=== PATIENT | female | born 2005 | race African-American/Black ===

== ENCOUNTER 2024-08-17 16:53 | Outpatient (CLI) | payer OTHER, SELFPAY | END 2024-08-17 16:54 | disposition home or self-care (01) | LOC: NFLDREF 16:54 | PROVIDERS: Visit Provider Registered Nurse | DX: F64.9 Gender identity disorder, unspecified (principal) | CPT/HCPCS: 84270; 84402; 84403 ==

== ENCOUNTER 2024-10-30 23:20 | Emergency (ER) | payer OTHER, SELFPAY ==
[2024-10-30 23:39] VITALS: BP 132/88; PULSE 75; RESP 18; TEMP 36.3; O2SAT 98; BMI 43.0
--- NOTE | 2024-10-31 00:02 | ED.NURSE ---
Pt cooperative. Pt dressed in hospital paper scrubs. Belongings placed in belongings bag and inventoried by environmental sampling technician.
--- NOTE | 2024-10-31 00:13 | ED.NURSE ---
pt given water, jello, and warm blanket.
--- NOTE | 2024-10-31 00:23 | ED_ITS ---
HPI - General Adult General Chief complaint: Psychiatric Problem/Disorder Stated complaint: suicidal Time Seen by Provider: 10/31/24 00:15 History of Present Illness HPI narrative: pt is coming from [facility] by [employer]. Pt states they attempted suicide. Pt states they cut themselves. Pt has several superficial lacerations to left forearm, not actively bleeding. Pt states that a bill from the hospital started the thoughts. Pt states they vaped marijuana . No other recreations drugs taken. 19-year-old transitioning female. Goes by [employer]. Brought here by [employer] security after apparently had attempted suicide. Was found with a knife and lacerations of the left forearm. History of gender dysphoria and initiated on testosterone August 24 of this last year. Was noted to not be suicidal and in clear mind at that time. Recently initiated on testosterone injections and was doing well in this regard.? He feels at this point though backed up against a wall with a number of social stressors and overwhelmed with finances.? School has continued to raise to issue to wish rates.? Had been initially admitted with a scholarship.? First generation from poverty in [place] to go to school.? Received a bill of 300 dollars from hospital cares.? Unable to afford all of this even though sounds like is work study as well. Apparently this triggered thoughts where they felt that would be better off if were .? Used a knife to cut their left forearm.? Admits all of this has been accumulating for some time. Their plan is to . Believes they have no one to help them financially or otherwise. Taking escitalopram and bupropion. Bupropion is new prescription over the last month.? Generally feels additional apathy perhaps from medications No ingestions noted. Related Data Home Medications ?Medication ?Instructions ?Recorded ?Confirmed bupropion HCl 150 mg 24 hr tablet, 150 mg PO QAM 08/17/24 08/17/24 extended release (Wellbutrin XL) escitalopram oxalate 10 mg tablet 10 mg PO QDAY 08/17/24 08/17/24 (Lexapro) Previous Rx's ?Medication ?Instructions ?Recorded syringe (disposable) 1 mL (BD #25 ea 08/18/24 Syringe) needle (disp) 18 G 18 gauge x 1 #100 ea 08/20/24 (BD Regular Bevel Victoria) safety needles 25 gauge x 5/8 #100 ea 08/20/24 testosterone cypionate 200 mg/mL 50 mg (0.25 mL) subcut QWEEK 90 08/27/24 intramuscular oil days #12 mL (Depo-Testosterone) Allergies Allergy/AdvReac Type Severity Reaction Status Date / Time No Known Drug Allergies Allergy Verified 08/17/24 15:58 Review of Systems Status of ROS: Reports: 6 or more systems reviewed and unremarkable except as noted in History and below PFSH PFS Surgical History History of placement of ear tubes ?Z96.22 - Myringotomy tube(s) status (ICD-10) Family History Grandmother Diabetes FH: mental illness Social History Narrative: From [place]. Attending [facility]. Non-prescribed substance use: marijuana (any form) service: No Exam Narrative: Exam Narrative: Very pleasant. Calm. Number of facial piercings.? Generally positive affect.? Mood appears incongruent. Reflective thoughts. Skin is warm and dry. There are superficial 6 in long cuts/scrapes on the volar left forearm. None require repair. Heart in regular rate and rhythm. Breathing easily. Moving all extremities without difficulty. Cranial nerves 2- 12 intact. Pupils are 4 mm and equal. Const: Vital Signs, click to edit/add: Vital Signs - 24 hr 10/30/24 23:39 Temperature 97.4 F L Pulse Rate [Left P ulse Oximeter] 75 Respiratory Rate 18 Blood Pressure [Ri ght Upper Arm] 132/88 Pulse Oximetry 98 Oxygen Delivery Me thod Room Air Documenting provider has reviewed patient's vital signs: yes Course Vital Signs Vital signs: Initial Vital Signs Temperature 97.4 F L 10/30/24 23:39 Temperature Source Temporal Artery Scan 10/30/24 23:39 Pulse Rate 75 10/30/24 23:39 Pulse Rhythm Regular 10/30/24 23:39 Respiratory Rate 18 10/30/24 23:39 Blood Pressure 132/88 10/30/24 23:39 Blood Pressure Mean 102 10/30/24 23:39 Blood Pressure Position Sitting 10/30/24 23:39 Pulse Oximetry 98 10/30/24 23:39 Oxygen Delivery Method Room Air 10/30/24 23:39 Vital Signs Temperature 97.4 F L 10/30/24 23:39 Pulse Rate 75 10/30/24 23:39 Respiratory Rate 18 10/30/24 23:39 Blood Pressure 132/88 10/30/24 23:39 Pulse Oximetry 98 10/30/24 23:39 Oxygen Delivery Method Room Air 10/30/24 23:39 Temperature 97.4 F L 10/30/24 23:39 Pulse Rate 75 10/30/24 23:39 Respiratory Rate 18 10/30/24 23:39 Blood Pressure 132/88 10/30/24 23:39 Pulse Oximetry 98 10/30/24 23:39 Oxygen Delivery Method Room Air 10/30/24 23:39 Medical Decision Making MDM Narrative Medical decision making narrative: Self-harm behavior it is not significant to warrant intervention however Shaheen is demonstrating a concerning level of be apathy at the same time. Is not able to contract for safety. I did discuss this case with JUN to assist with psychiatric interview. In further consultation with psychiatric nurse property condition assessor, in agreement that hospitalization would be helpful and recommended. Shaheen had indicated other forms of suicide with them. I discuss this with Shaheen and says essentially sure, whatever. Voluntary at this point. Pending labs will be looking for psychiatric hospitalization. Labs are reassuring. Possible urinary tract infection evidenced in urine however would wait for culture to initiate treatment. Over time in the emergency department without event. I would consider Shaheen medically cleared. Medical Records Medical records reviewed: Yes I reviewed the patient's medical records Lab Data Lab results reviewed: Yes I reviewed the patient's lab results Labs: Lab Results 10/31/24 10/31/24 Range/Units 04:57 05:52 Hgb 12.2 (12.0-16.0) gm/dL Sodium 138 (135-149) mmol/L Potassium 3.7 (3.6-5.1) mmol/L Chloride 108 (96-114) mmol/L Carbon Dioxide 20 (20-32) mmol/L Anion Gap 10 (7-15) mEq/L BUN 10 (5-24) mg/dL Creatinine 0.7 (0.5-1.5) mg/dL Estimated Creat Clear 100.55 Estimated GFR 126 ml/min Glucose 111 (60-115) mg/dL Calcium 9.3 (8.4-10.6) mg/dL Angiotensin Convert Enz Cancelled Urine Color Yellow (Yellow) Urine Appearance Cloudy A (Clear) Urine pH 6.0 (5.0-8.5) Ur Specific [place] >= 1.030 (1.000-1.030) Urine Protein Trace A (Negative) Urine Glucose (UA) Negative (Negative) Urine Ketones 1+ A (Negative) Urine Blood Negative (Negative) Urine Nitrite Negative (Negative) Urine Bilirubin Negative (Negative) Urine Urobilinogen 0.2 (0.2-1.0) Ur Leukocyte Esterase 1+ A (Negative) Urine RBC 0-2 (0-2) Urine WBC 5-10 A (0-5) Ur Squamous Epith Cells None (None-Few) Urine Bacteria Moderate A (None) Salicylates < 1.0 L (1.0-10) mg/dL Urine Opiates Screen Negative (Negative) Ur Oxycodone Screen Negative (Negative) Urine Methadone Screen Negative (Negative) Acetaminophen < 10.0 L (10.0-30.0) ug/mL Ur Barbiturates Screen Negative (Negative) U Tricyclic Antidepress Negative (Negative) Ur Phencyclidine Scrn Negative (Negative) Ur Amphetamines Screen Negative (Negative) U Methamphetamines Scrn Negative (Negative) U Benzodiazepines Scrn Negative (Negative) Urine Cocaine Screen Negative (Negative) U Marijuana (THC) Screen POSITIVE A (Negative) Ur Drug Screen Comment See Note Ethyl Alcohol < 0.01 L (0.01-0.03) % Discharge Plan Discharge Clinical Impression: Suicidal ideation, Other social stressor Patient Disposition: Xfer Other Condition: Stable Prescriptions: No Action escitalopram oxalate [Lexapro] 10 mg tablet 10 mg PO QDAY bupropion HCl [Wellbutrin XL] 150 mg tablet extended release 24 hr 150 mg PO QAM (DME) BD Syringe 1 mL syringe See Rx Instructions .Route Qty: 25 0RF Rx Instructions: As directed (DME) safety needles 25 gauge x 5/8 needle See Rx Instructions .Route Qty: 100 0RF Rx Instructions: As directed (DME) needle (disp) 18 G [BD Regular Bevel Victoria] 18 gauge x 1 needle See Rx Instructions .Route Qty: 100 0RF Rx Instructions: As directed testosterone cypionate [Depo-Testosterone] 200 mg/mL oil 50 mg subcut QWEEK 90 Days Qty: 12 0RF Rx Instructions: please dispense 90 day supply Follow Up/Referrals: Provider,Not a Local [Primary Care Provider] - Stand Alone Forms: [facility] Info Instructions
--- NOTE | 2024-10-31 00:39 | ED.NURSE ---
Samra Howe, Director of Student Health an Counselor at [facility] (#[phone]), called and informed this RN that the patient had a note written. Body of the note was suicidal and good bye letter. Letter was not seen, only verbalized to [employer].
--- NOTE | 2024-10-31 04:04 | ED.NURSE ---
Pt spoke to Nate around 0150. Nate spoke to around 0225. Pt currently resting room watching TV.
[2024-10-31 05:23] LABS: Appearance Urine Cloudy (Clear); Bilirubin Urine Negative (Negative); Blood Urine Negative (Negative); Color Urine Yellow (Yellow); Glucose Urine Negative (Negative); Ketones Urine 1+ (Negative); Leukocyte Esterase Urine 1+ (Negative); Nitrite Urine Negative (Negative); Protein Urine Trace (Negative); Specific Gravity Urine >= 1.030 (1.000-1.030); Urobilinogen Urine 0.2 (0.2-1.0)
[2024-10-31 05:32] LABS: Amphetamine Screen Urine Negative (Negative); Barbiturate Screen Urine Negative (Negative); Benzodiazepines Screen Urine Negative (Negative); Cannabinoid Screen Urine POSITIVE (Negative); Cocaine Screen Urine Negative (Negative); Methadone Screen Urine Negative (Negative); Methamphetamines Screen Urine Negative (Negative); Opiate Screen Urine Negative (Negative); Oxycodone Screen Urine Negative (Negative); Phencyclidine Screen Urine Negative (Negative); Tricyclic Antidepressant Urine Negative (Negative)
[2024-10-31 05:33] LABS: Bacteria Urine Moderate; RBC Urine 0-2 (0-2)
[2024-10-31 06:21] LABS: Ethanol* < 0.01 % (0.01-0.03)
[2024-10-31 06:25] LABS: Hemoglobin* 12.2 gm/dL (12.0-16.0)
[2024-10-31 06:28] LABS: Anion Gap 10 mEq/L (7-15); Blood Urea Nitrogen* 10 mg/dL (5-24); Calcium* 9.3 mg/dL (8.4-10.6); Carbon Dioxide* 20 mmol/L (20-32); Chloride* 108 mmol/L (96-114); Creatinine* 0.7 mg/dL (0.5-1.5); Est. Creatinine Clearance* 100.55; Estimated Glomerular Filt Rate 126 ml/min; Potassium* 3.7 mmol/L (3.6-5.1); Sodium* 138 mmol/L (135-149)
[2024-10-31 06:29] LABS: Acetaminophen* < 10.0 ug/mL (10.0-30.0); Glucose* 111 mg/dL (60-115); Salicylate* < 1.0 mg/dL (1.0-10)
[2024-10-31 09:30] VITALS: BP 120/74; PULSE 68; RESP 16; O2SAT 98
[2024-10-31 11:30] VITALS: BP 118/72; PULSE 70; RESP 16; O2SAT 98
[2024-10-31 13:24] VITALS: BP 121/75; PULSE 74; RESP 16; TEMP 36.2; O2SAT 99
== END 2024-10-31 13:52 | disposition other institution (70) ==
PROVIDERS: Family Medicine; Emergency Provider Student in an Organized Health Care Education/Training Program
DX: R45.851 Suicidal ideations (principal); F43.9 Reaction to severe stress, unspecified
CPT/HCPCS: 36415; 80048; 80143; 80179; 80306; 81001; 81003; 82077; 82164; 85018; 87086; 99284; 99285

== ENCOUNTER 2024-10-31 13:45 | Outpatient (CLI) | payer OTHER, SELFPAY | END 2024-10-31 13:46 | disposition home or self-care (01) | LOC: AMB 11-16 16:30 | PROVIDERS: Visit Provider Family Medicine | DX: R45.851 Suicidal ideations (principal) | CPT/HCPCS: A0425; A0428 ==

== ENCOUNTER 2024-10-31 13:45 | Outpatient (CLI) | payer OTHER, SELFPAY | END 2024-10-31 13:46 | disposition home or self-care (01) | LOC: AMB 11-26 01:22 | PROVIDERS: Visit Provider Student in an Organized Health Care Education/Training Program | DX: R45.851 Suicidal ideations (principal) | CPT/HCPCS: A0425; A0428 ==